=== PATIENT | male | born 1980 | race Caucasian/White ===

== ENCOUNTER 2016-06-15 12:40 | Emergency (ER) | payer OTHER ==
[2016-06-15 12:58] VITALS: BP 134/80
--- NOTE | 2016-06-15 15:08 | PROVIDER DOCUMENTATION ---
HPI-Rash/Wound/ReCheck - General Source: patient - History of Present Illness-Dermatology Location: reports: generalized Quality: reports: itchy Severity: reports: mild Onset/Duration: reports: unsure Timing: reports: still present Context/Associated Symptoms: reports: rash Identifiable cause?: No Exposure: reports: unknown cause Locality of Occurance: Home Similar Symptoms Previously?: Yes Recently seen or treated by another doctor?: No <Zainab Quiñonez - Last Filed: 06/15/16 15:03> <Partha Ferrara - Last Filed: 06/15/16 15:22> - General Chief Complaint: Rash Stated Complaint: RASH/BED BUGS Time Seen by Provider: 06/15/16 14:53 Allergies/Adverse Reactions: Allergies Allergy/AdvReac Type Severity Reaction Status Date / Time haloperidol [From Haldol] Allergy dystonic Verified 05/10/16 23:30 reaction haloperidol lactate * Allergy dystonic Verified 05/10/16 23:30 [From Haldol] reaction lurasidone HCl * Allergy dystonic Verified 05/10/16 23:30 [From Latuda] reaction risperidone [From Risperdal] Allergy Unknown Verified 05/10/16 23:30 trazodone Allergy SWELLING Verified 05/10/16 23:30 Home Medications: Home Medication List Medication Instructions Recorded Confirmed Last Taken Type Bupropion S.r. [Wellbutrin Sr] 150 mg PO 1200 #30 tablet 03/03/16 Unknown Rx Bupropion S.r. [Wellbutrin Sr] 300 mg PO QAM #60 tablet 03/03/16 Unknown Rx Aripiprazole [Abilify] 5 mg PO QHS #0 tablet 05/13/16 Unknown Rx Buprenorphine/Naloxone S.l. 1 each SL BID #0 tablet 05/13/16 05/11/16 05/10/16 08:00 Rx [Suboxone 8 mg/2 mg] Clonazepam [Klonopin] 1 mg PO TID #0 tablet 05/13/16 Unknown Rx Dextroamphetamine/Amphetamine 30 mg PO 0900,1200 #0 tablet 05/13/16 Unknown Rx [Adderall 30 mg Tablet] Divalproex E.r. [Depakote ER] 1,000 mg PO QHS 30 Days 05/13/16 Unknown Rx Duloxetine [Cymbalta] 60 mg PO DAILY #0 capsule 05/13/16 Unknown Rx Hydroxyzine 25 mg PO TID PRN #120 tablet 06/15/16 Unknown Rx Permethrin 5% Cream [Elimite 5% 60 gm .SEE ORDER HS #1 tube 06/15/16 Unknown Rx Cream] - History of Present Illness-Dermatology Nature of Presenting Problem: Pt is 36 y/o M presents to the ED with rash. Pt states recently being exposed to bed bugs. Pt states the rash is all over. (Zainab Quiñonez) Review of Systems - Adult - REVIEW OF SYSTEMS - ADULT Constitutional: reports: no symptoms reported Eyes: reports: no symptoms reported Ears, Nose, Mouth & Throat: reports: no symptoms reported Cardiovascular: reports: irregular heart rate (tachy). denies: chest pain, heart murmur Respiratory: reports: no symptoms reported Gastrointestinal: reports: no symptoms reported Genitourinary: reports: no symptoms reported Musculoskeletal: reports: no symptoms reported Integumentary: reports: itching, rash. denies: hives Neurological: denies: dizziness/vertigo, headache/migraines Psychiatric: reports: no symptoms reported Endocrine: reports: no symptoms reported Hematologic/Lymphatic: reports: no symptoms reported Allergic/Immunologic: reports: no symptoms reported All Other Systems: Reviewed and Negative <Zainab Quiñonez - Last Filed: 06/15/16 15:03> Past History - Adult - PAST MEDICAL HISTORY-ADULT Review of Records: reports: Nursing Assessment Review, Medications Reviewed, Social history reviewed & non-contributory. Major Childhood Illnesses: reports: denies history Cardiovascular: reports: denies history Respiratory: reports: denies history Gastrointestinal: reports: hepatitis (hx hepatitis C) Obstetrical/Gynecological: reports: denies history Genitourinary: reports: cancer, other (hx of testicular cancer in remission) Musculoskeletal: reports: denies history Neurological: reports: denies history Psychiatric: reports: schizophrenia Endocrine/Immune: reports: denies history Other Conditions: reports: denies history - PRIOR SURGERIES/PROCEDURES Surgical/Procedure History: reports: reviewed, not pertinent, other ( adenoidectomy/testicle removed) - PRIOR HOSPITALIZATIONS Prior Hospitalizations: reports: for other non-related - IMMUNIZATION STATUS Childhood Immunizations: See Nurse Assessment Flu Vaccine: See Nurse Assessment - FAMILY HISTORY Family History: reviewed, not pertinent - SOCIAL HISTORY Smoking: cigarettes, greater than 1 pack/day Provider spent 3-5 mins advising pt. on dangers of tobacco.: Discussed manners to quit use, and f/u contacts for add'l counseling. Substance Use: denies Living Situation: family <Zainab Quiñonez - Last Filed: 06/15/16 15:03> Physical Exam-General - PHYSICAL EXAM-ADULT Initial Vital Signs Reviewed: Yes - CONSTITUTIONAL General Appearance: appears well, alert, no apparent distress - EYES Eyes: PERRL/EOMI, pink conjunctivae, fundi clear, no AV nicking - HEAD, EARS, NOSE, MOUTH & THROAT HENMT: normocephalic/atraumatic, moist mucous membranes, normal ENT inspection, TMs normal, pharynx normal - NECK Neck: non-tender, full range of motion, supple, normal inspection - RESPIRATORY Respiratory: chest non-tender, lungs clear, normal breath sounds, no pleuratic chest pain, no respiratory distress, no accessory muscle use - CARDIOVASCULAR Cardiovascular: normal peripheral pulses, no edema, no gallop, no JVD, no murmur , tachycardia - GASTROINTESTINAL (ABDOMEN) Abdominal Exam: normal bowel sounds, non tender, soft, no organomegaly, no pulsatile mass - LYMPHATIC Lymphatic: no adenopathy - MUSCULOSKELETAL Back Exam: normal inspection, no CVA tenderness, no vertebral tenderness Extremity: normal range of motion, non-tender, normal gait, normal inspection, no pedal edema, no calf tenderness - SKIN Integumentary: normal color, normal turgor, warm/dry, rash - NEUROLOGIC Neurologic: grossly normal - PSYCHIATRIC Psych/Mental Status: normal mood/affect, oriented x 3 <Zainab Quiñonez - Last Filed: 06/15/16 15:03> Progress <Zainab Quiñonez - Last Filed: 06/15/16 15:03> <Partha Ferrara - Last Filed: 06/15/16 15:22> - PLAN OF CARE/RESULTS Progress/Plan/Lab Results: Vital Signs - 24 hr 06/15/16 12:55 Temperature 98 F Pulse Rate 111 H Respiratory 18 Rate Blood Pressure 134/80 O2 Sat by Pulse 98 Oximetry (Zainab Quiñonez) Departure <Zainab Quiñonez - Last Filed: 06/15/16 15:03> - Departure Time of Disposition Order: 15:15 Certified Medical Emergency: Emergent <Partha Ferrara - Last Filed: 06/15/16 15:22> - Departure DIAGNOSIS: Scabies infestation Disposition: HOME 01 Condition: Stable Additional Instructions: ED Follow Up Instructions: You have been treated by a care provider in the Emergency Department. These instructions are being provided to you so you can have an understanding of how to care for yourself upon discharge. Upon discharge from the Emergency Department, you are responsible for making arrangements for follow-up care by a physician of your choice. Take all prescribed medications as directed. Return to the Emergency Department immediately for any new or worsening symptoms. You may call the Physician Referral phone number at [phone] to obtain a list of Physicians who are taking new patients. Prescriptions: Permethrin 5% Cream [Elimite 5% Cream] 60 gm .SEE ORDER HS #1 tube Hydroxyzine 25 mg PO TID PRN #120 tablet PRN Reason: Itching Referrals: Anai Kauffman MD [Primary Care Provider] - Attestation - Scribe Verification/Attestation Scribe:: Zainab Quiñonez Acting as Scribe for:: Partha Ferrara Scribe documention review:: This chart was documented by a scribe and accurately reflects the service the provider performed and the decisions made by the provider. <Zainba Quiñonez - Last Filed: 06/15/16 15:03> Physician Attestation
== END 2016-06-15 15:33 | disposition home or self-care (01) ==
LOC: P.ED 12:40
DX: B86 Scabies (principal); R21 Rash and other nonspecific skin eruption; L29.9 Pruritus, unspecified; R00.0 Tachycardia, unspecified; B19.20 Unspecified viral hepatitis C without hepatic coma; F17.210 Nicotine dependence, cigarettes, uncomplicated; Z79.899 Other long term (current) drug therapy; Z71.6 Tobacco abuse counseling; Z85.47 Personal history of malignant neoplasm of testis
CPT/HCPCS: 99282

== ENCOUNTER 2016-07-01 10:26 | Emergency (ER) | payer OTHER ==
[2016-07-01 10:45] VITALS: BP 133/68
== END 2016-07-01 11:08 | disposition left against medical advice (07) ==
LOC: EDBD → ED 10:26
DX: J02.9 Acute pharyngitis, unspecified (principal); R06.02 Shortness of breath; R49.0 Dysphonia; Z53.21 Procedure and treatment not carried out due to patient leaving prior to being seen by health care provider
CPT/HCPCS: 87081; 87430

== ENCOUNTER 2016-07-03 01:44 | Emergency (ER) | payer OTHER ==
[2016-07-03] MEDS ORDERED: XYLOCAINE-MPF 1% INJ ONE (01:49)
[2016-07-03] MEDS ORDERED: ROCEPHIN IM ONE (01:49)
--- NOTE | 2016-07-03 01:52 | PROVIDER DOCUMENTATION ---
HPI-Rash/Wound/ReCheck - General Stated Complaint: general Time Seen by Provider: 07/03/16 01:44 Source: patient, EMS Allergies/Adverse Reactions: Allergies Allergy/AdvReac Type Severity Reaction Status Date / Time haloperidol [From Haldol] Allergy dystonic Verified 07/03/16 02:04 reaction haloperidol lactate * Allergy dystonic Verified 07/03/16 02:04 [From Haldol] reaction lurasidone HCl * Allergy dystonic Verified 07/03/16 02:04 [From Latuda] reaction risperidone [From Risperdal] Allergy Unknown Verified 07/03/16 02:04 trazodone Allergy SWELLING Verified 07/03/16 02:04 Home Medications: Home Medication List Medication Instructions Recorded Confirmed Last Taken Type Bupropion S.r. [Wellbutrin Sr] 150 mg PO 1200 #30 tablet 03/03/16 07/03/16 Unknown Rx Bupropion S.r. [Wellbutrin Sr] 300 mg PO QAM #60 tablet 03/03/16 07/03/16 Unknown Rx Aripiprazole [Abilify] 5 mg PO QHS #0 tablet 05/13/16 07/03/16 Unknown Rx Buprenorphine/Naloxone S.l. 1 each SL BID #0 tablet 05/13/16 07/03/16 05/10/16 08:00 Rx [Suboxone 8 mg/2 mg] Clonazepam [Klonopin] 1 mg PO TID #0 tablet 05/13/16 07/03/16 Unknown Rx Dextroamphetamine/Amphetamine 30 mg PO 0900,1200 #0 tablet 05/13/16 07/03/16 Unknown Rx [Adderall 30 mg Tablet] Divalproex E.r. [Depakote ER] 1,000 mg PO QHS 30 Days 05/13/16 07/03/16 Unknown Rx Duloxetine [Cymbalta] 60 mg PO DAILY #0 capsule 05/13/16 07/03/16 Unknown Rx Hydroxyzine 25 mg PO TID PRN #120 tablet 06/15/16 07/03/16 Unknown Rx Permethrin 5% Cream [Elimite 5% 60 gm .SEE ORDER HS #1 tube 06/15/16 07/03/16 Unknown Rx Cream] Cephalexin [Keflex] 500 mg PO TID #30 capsule 07/03/16 Unknown Rx Sulfamethoxazole/Tmp D.s. [Sept 1 each PO BID #20 tablet 07/03/16 Unknown Rx Ds] - History of Present Illness-Dermatology Nature of Presenting Problem: pt has been walking aroound barefoot and today noticed that his right foot was swollen and red. HE denies fever or chills. HE continues to take his clonopin, suboxone and methamphetamine Review of Systems - Adult - REVIEW OF SYSTEMS - ADULT Constitutional: denies: chills, fever Eyes: denies: discharge Ears, Nose, Mouth & Throat: denies: ear pain, sinus problem, throat pain Cardiovascular: denies: chest pain, palpitations Respiratory: denies: cough, shortness of breath Gastrointestinal: denies: abdominal pain, nausea, vomiting Genitourinary: denies: dysuria, frequency Musculoskeletal: denies: muscle aches Integumentary: denies: rash Neurological: denies: headache/migraines, numbness Psychiatric: reports: alcohol/drug dependence Endocrine: reports: no symptoms reported Hematologic/Lymphatic: reports: no symptoms reported Allergic/Immunologic: reports: no symptoms reported All Other Systems: Reviewed and Negative Past History - Adult - PAST MEDICAL HISTORY-ADULT Review of Records: reports: Old Records Reviewed, Nursing Assessment Review, Medications Reviewed, Social history reviewed & non-contributory. Major Childhood Illnesses: reports: denies history Cardiovascular: reports: denies history Respiratory: reports: denies history Gastrointestinal: reports: hepatitis Obstetrical/Gynecological: reports: denies history Genitourinary: reports: cancer, other Musculoskeletal: reports: denies history Neurological: reports: denies history Psychiatric: reports: schizophrenia Endocrine/Immune: reports: denies history Other Conditions: reports: denies history - PRIOR SURGERIES/PROCEDURES Surgical/Procedure History: reports: reviewed, not pertinent, other - PRIOR HOSPITALIZATIONS Prior Hospitalizations: reports: for other non-related - IMMUNIZATION STATUS Childhood Immunizations: See Nurse Assessment Flu Vaccine: See Nurse Assessment - FAMILY HISTORY Family History: reviewed, not pertinent - SOCIAL HISTORY Smoking: greater than 1 pack/day Substance Use: amphetamines, benzodiazepines Alcohol Use Frequency: occasionally Living Situation: alone Physical Exam-General - PHYSICAL EXAM-ADULT Initial Vital Signs Reviewed: Yes - CONSTITUTIONAL General Appearance: appears well, alert, no apparent distress - EYES Eyes: pink conjunctivae. negative: scleral icterus - HEAD, EARS, NOSE, MOUTH & THROAT HENMT: normocephalic/atraumatic - NECK Neck: non-tender, full range of motion, supple, normal inspection - RESPIRATORY Respiratory: chest non-tender, lungs clear, normal breath sounds, no pleuratic chest pain, no respiratory distress, no accessory muscle use - CARDIOVASCULAR Cardiovascular: regular rate, rhythm, no murmur - GASTROINTESTINAL (ABDOMEN) Abdominal Exam: normal bowel sounds, non tender, soft, no organomegaly, no pulsatile mass - MUSCULOSKELETAL Back Exam: normal inspection, no CVA tenderness, no vertebral tenderness Extremity: other (both feet are filthy and right foot is moderately swollen with erythema to forefoot along with increased warmth. No redstreaks or crepitus ) - SKIN Integumentary: normal color, normal turgor, warm/dry - NEUROLOGIC Neurologic: grossly normal, no motor/sensory deficits - PSYCHIATRIC Psych/Mental Status: normal mood/affect, normal thought content, normal thought process, oriented x 3 Progress - PLAN OF CARE/RESULTS Progress/Plan/Lab Results: Orders Category Date Time Status CefTRIAXONE [Rocephin] Med 07/03/16 01:49 Discontinued 2 gm IM NOW ONE Lidocaine 1% Pf [Xylocaine-Mpf 1%] Med 07/03/16 01:49 Discontinued 5 ml INJ NOW ONE Vital Signs Temp Pulse Resp BP Pulse Ox 07/03/16 02:00 98.1 F 104 H 20 141/95 100 haloperidol [From Haldol] Allergy (Verified 07/03/16 02:04) dystonic reaction haloperidol lactate * [From Haldol] Allergy (Verified 07/03/16 02:04) dystonic reaction lurasidone HCl * [From Latuda] Allergy (Verified 07/03/16 02:04) dystonic reaction risperidone [From Risperdal] Allergy (Verified 07/03/16 02:04) Unknown trazodone Allergy (Verified 07/03/16 02:04) SWELLING Bupropion S.r. [Wellbutrin Sr] 150 mg PO 1200 #30 tablet 03/03/16 Bupropion S.r. [Wellbutrin Sr] 300 mg PO QAM #60 tablet 03/03/16 Aripiprazole [Abilify] 5 mg PO QHS #0 tablet 05/13/16 Buprenorphine/Naloxone S.l. [Suboxone 8 mg/2 mg] 1 each SL BID #0 tablet Clonazepam [Klonopin] 1 mg PO TID #0 tablet 05/13/16 Dextroamphetamine/Amphetamine [Adderall 30 mg Tablet] 30 mg PO 0900,1200 #0 tablet 05/13/16 Divalproex E.r. [Depakote ER] 1,000 mg PO QHS 30 Days 05/13/16 Duloxetine [Cymbalta] 60 mg PO DAILY #0 capsule 05/13/16 Hydroxyzine 25 mg PO TID PRN #120 tablet 06/15/16 Permethrin 5% Cream [Elimite 5% Cream] 60 gm .SEE ORDER HS #1 tube 06/15/16 Cephalexin [Keflex] 500 mg PO TID #30 capsule 07/03/16 Sulfamethoxazole/Tmp D.s. [Septra Ds] 1 each PO BID #20 tablet 07/03/16 Departure - Departure Time of Disposition Order: 01:50 DIAGNOSIS: Cellulitis of right foot Disposition: HOME 01 Certified Medical Emergency: Emergent Condition: Good Additional Instructions: come back in 2 days if not improving ED Follow Up Instructions: You have been treated by a care provider in the Emergency Department. These instructions are being provided to you so you can have an understanding of how to care for yourself upon discharge. Upon discharge from the Emergency Department, you are responsible for making arrangements for follow-up care by a physician of your choice. Take all prescribed medications as directed. Return to the Emergency Department immediately for any new or worsening symptoms. You may call the Physician Referral phone number at [phone] to obtain a list of Physicians who are taking new patients. Prescriptions: Cephalexin [Keflex] 500 mg PO TID #30 capsule Sulfamethoxazole/Tmp D.s. [Septra Ds] 1 each PO BID #20 tablet Referrals: None,PCP [Primary Care Provider] - Instructions: Cellulitis, [id number]
[2016-07-03 02:02] VITALS: BP 141/95
== END 2016-07-03 02:36 | disposition home or self-care (01) ==
LOC: EDBD → ED 01:44
DX: L03.115 Cellulitis of right lower limb (principal); R22.41 Localized swelling, mass and lump, right lower limb; L53.9 Erythematous condition, unspecified; F20.9 Schizophrenia, unspecified; F17.210 Nicotine dependence, cigarettes, uncomplicated; Z79.899 Other long term (current) drug therapy; Z85.9 Personal history of malignant neoplasm, unspecified
CPT/HCPCS: J0696

== ENCOUNTER 2016-12-24 14:30 | Inpatient (IN) ==
[2016-12-24] MEDS ORDERED: VANCOMYCIN IV PER PHARMACY MISC SCH (15:45)
[2016-12-24] MEDS ORDERED: VANCOMYCIN ONE (15:53)
[2016-12-24] MEDS ORDERED: [UNRECOGNIZED DRUG - OTHER] ONE (15:53)
[2016-12-24] MEDS ORDERED: VANCOMYCIN 1 GM/NS 1 GM/250 ML IVPB IV ONE ×2 (15:55→17:00)
[2016-12-24 15:56] LABS: MANUAL DIFF NEEDED? NO
[2016-12-24 16:21] LABS: AGAP 9; ALBUMIN 3.8 g/dL (3.5-5.0); ALKALINE PHOSPHATASE 67 U/L (32-122); BUN 9 mg/dL (8-22); CALCIUM 9.2 mg/dL (8.8-10.2); CHLORIDE 95 mmol/L (98-107); COSMO 272; GOT 64 U/L (10-34); GPT 46 U/L (10-44); POTASSIUM 2.9 mmol/L (3.5-5.1); SODIUM 137 mmol/L (136-145); TCO2 33 mmol/L (25-35); TOTAL BILIRUBIN 0.51 mg/dL (0.20-1.00); TOTAL PROTEIN 6.7 g/dL (6.3-8.3)
[2016-12-24 16:34] LABS: BASO% 0.2 % (0.0-0.8); EOS# 0.25 X1000 (0.0-0.7); EOS% 4.1 % (0.0-10.0); HEMATOCRIT 33.7 % (42.0-52.0); HEMOGLOBIN 11.8 g/dL (14.0-18.0); LYMPH# 1.27 X1000 (1.2-3.4); LYMPH% 21.1 % (20.5-51.1); MCH 30.3 PG (27-31); MCV 86.6 FL (81-99); MPV 9.5 FL (7.4-10.4); NEUT% 64.6 % (42.2-75.2); PLT 287 X1000 (130-400); RBC 3.89 XMIL (4.7-6.1)
[2016-12-24] MEDS ORDERED: KLOR-CON PO ONE (17:30)
[2016-12-24] MEDS ORDERED: ZOSYN 3.375 GM in NS 50 ML IV ONE (18:38)
[2016-12-24] MEDS ORDERED: ZOFRAN IV PRN (20:39)
[2016-12-24] MEDS ORDERED: NS 1,000 ML IV ONE (20:39)
[2016-12-24] MEDS: KLONOPIN PO SCH (22:44)
[2016-12-24] MEDS: LOVENOX SUBQ SCH (22:45)
[2016-12-24] MEDS: SUBOXONE 8 MG/2 MG SL SCH (22:51)
[2016-12-25] MEDS: ZOSYN 3.375 GM in NS 50 ML IV SCH ×2 (00:37→12:54)
[2016-12-25] MEDS: VANCOMYCIN 1,600 MG in NS 250 ML IV SCH ×2 (05:35→18:03)
[2016-12-25 06:10] LABS: MANUAL DIFF NEEDED? NO
[2016-12-25 06:26] LABS: BASO% 0.4 % (0.0-0.8); EOS# 0.29 X1000 (0.0-0.7); EOS% 6.5 % (0.0-10.0); HEMATOCRIT 32.2 % (42.0-52.0); LYMPH# 1.67 X1000 (1.2-3.4); LYMPH% 37.4 % (20.5-51.1); MCH 30.3 PG (27-31); MCHC 34.2 g/dL (33-37); MCV 88.7 FL (81-99); MONO# 0.43 X1000 (0.11-0.59); MONO% 9.6 % (1.7-9.3); MPV 9.5 FL (7.4-10.4); NEUT% 46.1 % (42.2-75.2); PLT 246 X1000 (130-400); RBC 3.63 XMIL (4.7-6.1)
[2016-12-25 06:27] LABS: INR 1.06; PROTIME 11.2 Seconds (9.2-11.7); PTT 34.1 Seconds (22.0-36.0)
[2016-12-25 06:49] LABS: AGAP 7; ALBUMIN 3.1 g/dL (3.5-5.0); ALKALINE PHOSPHATASE 51 U/L (32-122); BUN 6 mg/dL (8-22); CALCIUM 8.6 mg/dL (8.8-10.2); CHLORIDE 103 mmol/L (98-107); COSMO 280; GOT 48 U/L (10-34); GPT 37 U/L (10-44); MAGNESIUM 2.1 mg/dL (1.5-2.7); POTASSIUM 3.6 mmol/L (3.5-5.1); SODIUM 142 mmol/L (136-145); TCO2 32 mmol/L (25-35); TOTAL BILIRUBIN 0.41 mg/dL (0.20-1.00); TOTAL PROTEIN 5.2 g/dL (6.3-8.3)
[2016-12-25] MEDS: SUBOXONE 8 MG/2 MG SL SCH ×2 (10:37→21:04)
[2016-12-25] MEDS: KLONOPIN PO SCH ×3 (10:37→21:06)
[2016-12-25] MEDS: MAXIPIME 2 GM in NS 100 ML IV SCH ×2 (12:53→23:00)
[2016-12-25] MEDS: NICODERM PATCH TD SCH (12:54)
[2016-12-25] MEDS: LOVENOX SUBQ SCH (21:06)
[2016-12-25 22:11] LABS: UR AMPHETAMINES QUAL NONE DETECTED (NONE DETECT); UR BARBITUATES QUAL NONE DETECTED (NONE DETECT); UR BENZODIAZEPIN QUAL PRESUMPTIVE POSITIVE (NONE DETECT); UR CANNABINOIDS QUAL NONE DETECTED (NONE DETECT); UR COCAINE QUAL NONE DETECTED (NONE DETECT); UR METHADONE QUAL NONE DETECTED (NONE DETECT); UR OPIATES QUAL NONE DETECTED (NONE DETECT); UR OXYCODONE QUAL NONE DETECTED (NONE DETECT); UR PCP QUAL NONE DETECTED (NONE DETECT)
[2016-12-26] MEDS: VANCOMYCIN 1,600 MG in NS 250 ML IV SCH ×3 (05:44→18:20)
[2016-12-26] MEDS: SUBOXONE 8 MG/2 MG SL SCH ×2 (09:00→20:29)
[2016-12-26] MEDS: NICODERM PATCH TD SCH (09:00)
[2016-12-26] MEDS: KLONOPIN PO SCH ×3 (09:00→20:29)
[2016-12-26 10:18] LABS: HIV ANTIBODY SCREEN SEE COMMENTS
[2016-12-26] MEDS: MAXIPIME 2 GM in NS 100 ML IV SCH ×3 (12:15→14:00)
[2016-12-26] MEDS: LOVENOX SUBQ SCH (20:29)
[2016-12-27] MEDS: MAXIPIME 2 GM in NS 100 ML IV SCH (01:07)
[2016-12-27] MEDS: TYLENOL PO PRN ×2 (01:08→12:08)
[2016-12-27 06:30] LABS: MANUAL DIFF NEEDED? NO
[2016-12-27 06:46] LABS: AGAP 8; ALBUMIN 3.4 g/dL (3.5-5.0); ALKALINE PHOSPHATASE 52 U/L (32-122); BUN 7 mg/dL (8-22); CALCIUM 9.2 mg/dL (8.8-10.2); CHLORIDE 102 mmol/L (98-107); COSMO 281; GOT 53 U/L (10-34); GPT 42 U/L (10-44); POTASSIUM 3.9 mmol/L (3.5-5.1); SODIUM 142 mmol/L (136-145); TCO2 32 mmol/L (25-35); TOTAL BILIRUBIN 0.21 mg/dL (0.20-1.00); TOTAL PROTEIN 5.4 g/dL (6.3-8.3)
[2016-12-27 06:58] LABS: BASO% 0.4 % (0.0-0.8); EOS# 0.35 X1000 (0.0-0.7); EOS% 7.9 % (0.0-10.0); HEMATOCRIT 35.1 % (42.0-52.0); HEMOGLOBIN 11.7 g/dL (14.0-18.0); LYMPH# 1.83 X1000 (1.2-3.4); LYMPH% 41.1 % (20.5-51.1); MCH 29.4 PG (27-31); MCHC 33.3 g/dL (33-37); MCV 88.2 FL (81-99); MONO# 0.43 X1000 (0.11-0.59); MONO% 9.7 % (1.7-9.3); MPV 9.1 FL (7.4-10.4); NEUT% 40.9 % (42.2-75.2); PLT 340 X1000 (130-400); RBC 3.98 XMIL (4.7-6.1)
[2016-12-27] MEDS: SUBOXONE 8 MG/2 MG SL SCH ×2 (09:12→21:31)
[2016-12-27] MEDS: KLONOPIN PO SCH ×3 (09:12→21:32)
[2016-12-27] MEDS: NICODERM PATCH TD SCH (09:13)
[2016-12-27] MEDS: VANCOMYCIN 1,600 MG in NS 250 ML IV SCH ×2 (12:03→16:04)
[2016-12-27] MEDS: LOVENOX SUBQ SCH (21:31)
[2016-12-27] MEDS: AUGMENTIN PO SCH (21:33)
[2016-12-28 07:37] VITALS: BP 112/71
[2016-12-28] MEDS: KLONOPIN PO SCH (09:06)
[2016-12-28] MEDS: AUGMENTIN PO SCH (09:06)
[2016-12-28] MEDS: SUBOXONE 8 MG/2 MG SL SCH (09:08)
[2016-12-28] MEDS: NICODERM PATCH TD SCH (09:09)
== END 2016-12-28 13:21 | disposition home or self-care (01) ==
LOC: ED 14:30 → SUATTDRO 20:20 → 4N 20:20
PROVIDERS: ATTEND Internal Medicine